=== PATIENT | male | born 1970 | race Caucasian/White ===

== ENCOUNTER 2019-04-23 10:46 | Inpatient (IN) | payer OTHER ==
[2019-04-23 11:45] LABS: ADD MAN DIFF? NO
[2019-04-23 11:50] LABS: BASOPHILS % 0.3 % (0.0-2.0); EOSINOPHILS % 0.2 % (0.0-7.0); HEMATOCRIT 48.1 % (42.0-52.0); HEMOGLOBIN 15.2 g/dl (14.0-18.0); LYMPHOCYTES # 2.2 10^3/ul (0.8-2.9); LYMPHOCYTES % 16.3 % (15.0-51.0); MEAN CORPUSCULAR HEMOGLOBIN 25.3 pg (29.0-33.0); MEAN CORPUSCULAR HGB CONC 31.6 g/dl (32.0-37.0); MEAN PLATELET VOLUME 10.2 fl (7.4-10.4); MONOCYTE # 1.1 10^3/ul (0.3-0.9); MONOCYTES % 7.7 % (0.0-11.0); NEUTROPHIL # 10.2 10^3/ul (1.6-7.5); NEUTROPHILS % 74.8 % (39.0-77.0); PLATELET COUNT 328 10^3/UL (140-415); RED BLOOD COUNT 6.01 10^6/ul (4.70-6.10); RED CELL DISTRIBUTION WIDTH 14.1 % (11.5-14.5)
[2019-04-23 11:50] LABS: WHITE BLOOD COUNT 13.6 10^3/ul (4.8-10.8)
[2019-04-23 11:51] LABS: ADD UMIC YES; UR ASCORBIC ACID NEGATIVE (NEGATIVE); UR BILIRUBIN (Dip) NEGATIVE (NEGATIVE); UR BLOOD (Dip) NEGATIVE (NEGATIVE); UR CLARITY SLIGHTLY CLOUDY (CLEAR); UR COLOR YELLOW (YELLOW); UR GLUCOSE (Dip) 3+ mg/dL (NEGATIVE); UR KETONES (Dip) TRACE mg/dL (NEGATIVE); UR LEUKOCYTE ESTERASE (Dip) NEGATIVE Leu/ul (NEGATIVE); UR NITRITE (Dip) NEGATIVE (NEGATIVE); UR RBC 0 /HPF (0-5); UR TOTAL PROTEIN (Dip) 1+ mg/dl (NEGATIVE); UR UROBILINOGEN (Dip) NEGATIVE (NEGATIVE); UR WBC 0 /HPF (0-5)
[2019-04-23] MEDS: SODIUM CHLORIDE 0.9% 1L BAG IV* (12:03)
[2019-04-23 12:05] LABS: ALANINE AMINOTRANSFERASE 22 IU/L (13-69); ALBUMIN 4.2 g/dl (3.3-4.9); ALBUMIN/GLOBULIN RATIO 1.13; ALKALINE PHOSPHATASE 127 IU/L (42-121); ANION GAP 14 (5-13); ASPARTATE AMINO TRANSFERASE 15 IU/L (15-46); BILIRUBIN,INDIRECT 0.5 mg/dl (0-1.1); BILIRUBIN,TOTAL 0.5 mg/dl (0.2-1.3); BLOOD UREA NITROGEN 24 mg/dl (7-20); CALCIUM 9.5 mg/dl (8.4-10.2); CARBON DIOXIDE 20 mmol/L (21-31); CHLORIDE 108 mmol/L (97-110); Estimated GFR > 60 mL/min (>60); GLUCOSE 210 mg/dl (70-220); SODIUM 142 mmol/L (135-144); TOTAL PROTEIN 7.9 g/dl (6.1-8.1)
[2019-04-23] MEDS: ONDANSETRON 4 MG INJ IV (12:05)
[2019-04-23] MEDS: morphine 4 MG/ML VIAL IV (12:05)
[2019-04-23 12:09] LABS: INR 0.96; PROTIME 12.9 Sec (11.9-14.9)
[2019-04-23 12:10] LABS: PARTIAL THROMBOPLASTIN TIME 30.2 Sec (23.0-35.0)
[2019-04-23] MEDS: AZTREONAM 1 GM/NS (PMX) 50 ML IVPB (12:10)
[2019-04-23 12:16] LABS: TROPONIN-I < 0.012 ng/ml (0.000-0.120)
[2019-04-23] MEDS: LINEZOLID 600 MG/300 ML (PMX) 300 ML IVPB ×2 (13:00→22:09)
[2019-04-23] MEDS ORDERED: ACETAMINOPHEN 325 MG TAB PO ×2 (13:30→16:30)
[2019-04-23] MEDS ORDERED: ONDANSETRON 4 MG INJ IV (13:30)
[2019-04-23] MEDS: HYDROmorphONE 2 MG/ML SYG IV (13:34)
[2019-04-23 14:56] LABS: LACTIC ACID 1.6 mmol/L (0.5-2.0)
[2019-04-23] MEDS ORDERED: DOCUSATE SODIUM 100 MG CAP PO (16:30)
[2019-04-23] MEDS: FINASTERIDE 5 MG TAB PO (16:30)
[2019-04-23] MEDS ORDERED: LIRAGLUTIDE SQ (16:30)
[2019-04-23] MEDS: CHOLECALCIFEROL 1,000 UNIT TAB PO (16:30)
[2019-04-23] MEDS ORDERED: NON-FORMULARY/PATIENT OWN MED (Amlodipine Besylate/Benazepril (Amlodipine-Benazepril 10-20 PO (16:30)
[2019-04-23] MEDS ORDERED: NACL 0.9% 3 ML SYG IV (16:30)
[2019-04-23] MEDS ORDERED: GLUCOSE GEL 15 GRAM TUBE BUCCAL (17:00)
[2019-04-23] MEDS ORDERED: GLUCAGON 1 MG INJ IM (17:00)
[2019-04-23] MEDS ORDERED: GLUCOSE GEL 15 GRAM TUBE PO ×2 (17:00)
[2019-04-23] MEDS: BENAZEPRIL 20 MG TAB PO (17:00)
[2019-04-23] MEDS ORDERED: DEXTROSE 50% 50 ML SYRINGE IV ×2 (17:00)
[2019-04-23] MEDS: AMLODIPINE 10 MG TAB PO (17:00)
[2019-04-23 17:01] LABS: LACTIC ACID 1.6 mmol/L (0.5-2.0)
[2019-04-23] MEDS: TAMSULOSIN (SR) 0.4 MG CAP PO ×2 (17:27→20:44)
[2019-04-23] MEDS: ACCU-CHEK XX ×2 (17:30→20:45)
[2019-04-23] MEDS: metFORMIN 500 MG TAB PO (17:59)
[2019-04-23] MEDS: HYDROCODONE/APAP (10/325) TAB PO (17:59)
[2019-04-23] MEDS: ENOXAPARIN 40 MG/0.4 ML SYG SC (18:02)
[2019-04-23] MEDS: EMPAGLIFLOZIN 10 MG TABLET PO (19:42)
[2019-04-23] MEDS: AZTREONAM 2 GM in DEXTROSE 5% 100 ML IVPB (20:43)
[2019-04-23] MEDS: KETOROLAC 15 MG INJ IV (20:43)
[2019-04-23] MEDS: GABAPENTIN 300 MG CAP PO (20:44)
[2019-04-23] MEDS: ATORVASTATIN 20 MG TAB PO (20:45)
[2019-04-23] MEDS: ONDANSETRON 4 MG TAB PO (23:17)
[2019-04-24] MEDS: KETOROLAC 15 MG INJ IV ×3 (04:49→19:26)
[2019-04-24 05:14] LABS: ADD MAN DIFF? NO
[2019-04-24 05:19] LABS: BASOPHILS % 0.2 % (0.0-2.0); EOSINOPHILS # 0.1 10^3/ul (0.0-0.5); EOSINOPHILS % 1.1 % (0.0-7.0); HEMOGLOBIN 13.4 g/dl (14.0-18.0); LYMPHOCYTES # 2.5 10^3/ul (0.8-2.9); LYMPHOCYTES % 24.6 % (15.0-51.0); MEAN CORPUSCULAR HEMOGLOBIN 25.1 pg (29.0-33.0); MEAN CORPUSCULAR HGB CONC 31.2 g/dl (32.0-37.0); MEAN CORPUSCULAR VOLUME 80.7 fl (82.0-101.0); MEAN PLATELET VOLUME 10.1 fl (7.4-10.4); MONOCYTE # 0.8 10^3/ul (0.3-0.9); MONOCYTES % 8.1 % (0.0-11.0); NEUTROPHIL # 6.7 10^3/ul (1.6-7.5); NEUTROPHILS % 65.5 % (39.0-77.0); PLATELET COUNT 287 10^3/UL (140-415); RED BLOOD COUNT 5.33 10^6/ul (4.70-6.10); RED CELL DISTRIBUTION WIDTH 14.3 % (11.5-14.5)
[2019-04-24 05:19] LABS: WHITE BLOOD COUNT 10.2 10^3/ul (4.8-10.8)
[2019-04-24 06:21] LABS: ANION GAP 6 (5-13); BLOOD UREA NITROGEN 21 mg/dl (7-20); CALCIUM 8.9 mg/dl (8.4-10.2); CARBON DIOXIDE 24 mmol/L (21-31); CHLORIDE 110 mmol/L (97-110); Estimated GFR > 60 mL/min (>60); GLUCOSE 119 mg/dl (70-220); POTASSIUM 4.7 mmol/L (3.5-5.1); SODIUM 140 mmol/L (135-144)
[2019-04-24] MEDS: ACCU-CHEK XX ×4 (07:00→21:00)
[2019-04-24 07:10] LABS: HEMOGLOBIN A1C 8.4 % (0-5.9)
[2019-04-24] MEDS: BENAZEPRIL 20 MG TAB PO (08:21)
[2019-04-24] MEDS: metFORMIN 500 MG TAB PO ×2 (08:21→18:03)
[2019-04-24] MEDS: AMLODIPINE 10 MG TAB PO (08:22)
[2019-04-24] MEDS: EMPAGLIFLOZIN 10 MG TABLET PO (08:22)
[2019-04-24] MEDS: CHOLECALCIFEROL 1,000 UNIT TAB PO (08:23)
[2019-04-24] MEDS: GABAPENTIN 300 MG CAP PO ×3 (08:23→21:29)
[2019-04-24] MEDS: FINASTERIDE 5 MG TAB PO (08:23)
[2019-04-24] MEDS: ENOXAPARIN 40 MG/0.4 ML SYG SC (08:24)
[2019-04-24] MEDS: ONDANSETRON 4 MG TAB PO (08:29)
[2019-04-24] MEDS: AZTREONAM 2 GM in DEXTROSE 5% 100 ML IVPB (08:30)
[2019-04-24] MEDS: LINEZOLID 600 MG/300 ML (PMX) 300 ML IVPB ×2 (08:30→22:46)
[2019-04-24] MEDS: VICTOZA 18 MG/3 ML SC (08:31)
[2019-04-24] MEDS: CLINDAMYCIN 600 MG/D5W (PMX) 50 ML IVPB (17:06)
[2019-04-24] MEDS: ONDANSETRON 4 MG INJ IV (19:26)
[2019-04-24] MEDS: AZTREONAM 2 GM in SOD CHLORIDE 0.9% 100 ML IVPB (21:28)
[2019-04-24] MEDS: ATORVASTATIN 20 MG TAB PO (21:28)
[2019-04-24] MEDS: TAMSULOSIN (SR) 0.4 MG CAP PO (21:29)
[2019-04-24] MEDS: HYDROCODONE/APAP (10/325) TAB PO (21:29)
[2019-04-25] MEDS: CLINDAMYCIN 600 MG/D5W (PMX) 50 ML IVPB ×3 (00:13→14:01)
[2019-04-25] MEDS: KETOROLAC 15 MG INJ IV ×2 (05:00→14:17)
[2019-04-25] MEDS: HYDROCODONE/APAP (10/325) TAB PO (05:00)
[2019-04-25] MEDS: ACCU-CHEK XX (07:00)
[2019-04-25] MEDS: AZTREONAM 2 GM in SOD CHLORIDE 0.9% 100 ML IVPB (08:22)
[2019-04-25] MEDS: GABAPENTIN 300 MG CAP PO ×3 (08:22→20:38)
[2019-04-25] MEDS: LINEZOLID 600 MG/300 ML (PMX) 300 ML IVPB (08:22)
[2019-04-25] MEDS: FINASTERIDE 5 MG TAB PO (08:22)
[2019-04-25] MEDS: AMLODIPINE 10 MG TAB PO (08:23)
[2019-04-25] MEDS: BENAZEPRIL 20 MG TAB PO (08:23)
[2019-04-25] MEDS: metFORMIN 500 MG TAB PO ×2 (08:24→17:45)
[2019-04-25] MEDS: VICTOZA 18 MG/3 ML SC (08:24)
[2019-04-25] MEDS: CHOLECALCIFEROL 1,000 UNIT TAB PO (08:24)
[2019-04-25] MEDS: EMPAGLIFLOZIN 10 MG TABLET PO (08:25)
[2019-04-25] MEDS: ENOXAPARIN 40 MG/0.4 ML SYG SC (08:26)
[2019-04-25] MEDS ORDERED: LIDOCAINE 1% (MPF) 5 ML VIAL SC (13:00)
[2019-04-25] MEDS: ONDANSETRON 4 MG INJ IV (14:16)
[2019-04-25] MEDS: INSULIN ASPART [NOVOLOG] 3 ML PEN SC ×2 (17:47→20:37)
[2019-04-25] MEDS: TAMSULOSIN (SR) 0.4 MG CAP PO (20:38)
[2019-04-25] MEDS: ATORVASTATIN 20 MG TAB PO (20:38)
[2019-04-26] MEDS ORDERED: INSULIN GLARGINE [LANTus] (100 UNITS/ML) SYG SC (08:00)
== END 2019-04-25 21:00 | disposition home health service (06) | DRG 603 ==
LOC: E/R 10:46 → 2NE 13:31
DX: L03.116 Cellulitis of left lower limb (principal); E11.65 Type 2 diabetes mellitus with hyperglycemia; E11.42 Type 2 diabetes mellitus with diabetic polyneuropathy; E11.21 Type 2 diabetes mellitus with diabetic nephropathy; E13.621 Other specified diabetes mellitus with foot ulcer; L97.529 Non-pressure chronic ulcer of other part of left foot with unspecified severity
CPT/HCPCS: 36415; 73718; 80048; 80053; 81001; 82962; 83036; 83605; 84443; 84484; 85025; 85610; 85730; 87040-91; 87070; 87081; 87086; 93005; 96365; 96367; 96375; 99285-25